=== PATIENT | female | born 1970 | race African-American/Black ===

== ENCOUNTER 2022-05-13 06:07 | Inpatient (IN) | payer OTHER, MEDICAID ==
[~2022-05-13] VITALS: Ht 162.6 cm; Wt 97.3 kg
[2022-05-13] MEDS ORDERED: IOHEXOL-350 100 ML BOTTLE ONE ×2 (07:10→11:11)
[2022-05-13 07:38] LABS: BASOPHILS % 0.7 % (0.0-2.0); EOSINOPHILS % 0.7 % (0.0-5.0); HEMATOCRIT. 46.1 % (36.0-48.0); HEMOGLOBIN. 14.4 g/dL (12.0-16.0); MEAN CORPUSCULAR HEMOGLOBIN 22.7 pg (28.0-32.0); MEAN CORPUSCULAR VOLUME 72.7 fL (81.0-99.0); MONOCYTES % 6.6 % (2.0-8.0); PLATELET 327 x1000/uL (130-400); RED BLOOD CELL COUNT 6.34 mill/uL (4.2-5.4); RED CELL DISTRIBUTION WIDTH 19.1 % (11.6-14.6)
[2022-05-13 07:44] LABS: CHLORIDE 101 mEq/L (98-107)
[2022-05-13 07:53] LABS: ETHANOL BLOOD < 10 mg/dL
[2022-05-13] MEDS ORDERED: DEXTROSE 50% WATER 50ML SYRINGE IV SCH (08:45)
[2022-05-13] MEDS ORDERED: SODIUM BICARBONATE 8.4% 1 MEQ/ML 50ML SYR IV SCH (08:45)
[2022-05-13] MEDS ORDERED: INSULIN REGULAR (HUMULIN R) 300UNITS/3ML VIAL IV SCH (08:45)
[2022-05-13] MEDS ORDERED: CALCIUM GLUCONATE 1,000 MG in DEXT 5% WATER 100 ML IV SCH (08:45)
[2022-05-13] MEDS ORDERED: CALCIUM GLUCONATE 1GM PREMIX 50 ML IV SCH (08:52)
[2022-05-13 08:55] LABS: BG BASE EXCESS 1.7 mmol/L (-2.0-2.0); BG CARBOXYHEMOGLOBIN 1.4 % (0.5-1.5); BG METHEMOGLOBIN 0.1 % (0.0-1.5); BG OXYGEN SATURATION 91.9 % (92.0-98.5); BG OXYHEMOGLOBIN 90.5 % (94.0-97.0); BG PCO2 35.7 mmHg (35.0-45.0); BG PH 7.464 (7.350-7.450); BG PO2 61.6 mmHg (75.0-100.0); BG SAMPLE SITE RIGHT RADIAL; BG TOTAL HEMOGLOBIN 15.2 g/dL (12.0-18.0); BG VENT MODE NASAL CANNULA
[2022-05-13] MEDS: ALBUTEROL (0.083%) 2.5MG/3ML NEB HHN SCH (09:40)
[2022-05-13] MEDS ORDERED: ACETAMINOPHEN 325MG TABLET PO PRN (11:15)
[2022-05-13] MEDS ORDERED: CLONIDINE 0.1MG TABLET PO PRN (11:15)
[2022-05-13] MEDS ORDERED: ONDANSETRON HCL 4MG/2ML INJ IV PRN (11:15)
[2022-05-13 11:25] VITALS: BP 138/87
[2022-05-13 11:26] LABS: CLARITY URINE CLOUDY (CLEAR); COLOR URINE YELLOW (YELLOW); KETONES URINE NEGATIVE (NEGATIVE); LEUKOCYTE ESTERASE URINE 2+ (NEGATIVE); NITRITE URINE NEGATIVE (NEGATIVE); OCCULT BLOOD URINE NEGATIVE (NEGATIVE); PROTEIN URINE 1+ (NEGATIVE); SPECIFIC GRAVITY URINE 1.026 (1.005-1.030); UROBILINOGEN URINE 0.2 E.U./dL (0.2-1.0)
[2022-05-13] MEDS ORDERED: AMLODIPINE 5MG TABLET PO NR (11:30)
[2022-05-13 11:49] LABS: *AMPHETAMINES SCREEN URINE NEGATIVE (NEGATIVE); *BARBITURATES SCREEN URINE NEGATIVE (NEGATIVE); *BENZODIAZEPINES SCREEN URINE NEGATIVE (NEGATIVE); *COCAINE SCREEN URINE NEGATIVE (NEGATIVE); CANNABINOID URINE SCREEN PRESUMTIVE POSITIVE (NEGATIVE); METHADONE URINE SCREEN NEGATIVE (NEGATIVE); OPIATES URINE SCREEN NEGATIVE (NEGATIVE); PHENCYCLIDINE URINE SCREEN NEGATIVE (NEGATIVE)
[2022-05-13 12:00] VITALS: BP 139/89
[2022-05-13] MEDS ORDERED: ENOXAPARIN 40MG/0.4ML SYR SUBCUT SCH (12:00)
[2022-05-13] MEDS ORDERED: PHEN50TA PO (12:54)
[2022-05-13] MEDS ORDERED: DIVA500T3 PO (12:54)
[2022-05-13] MEDS ORDERED: PHEN100C4 PO (12:54)
[2022-05-13] MEDS: ENOXAPARIN 30MG/0.3ML SYR SUBCUT SCH (13:20)
[2022-05-13 16:00] VITALS: BP 105/72
[2022-05-13 17:31] LABS: *AMPHETAMINES SCREEN URINE NEGATIVE (NEGATIVE); *BARBITURATES SCREEN URINE NEGATIVE (NEGATIVE); *BENZODIAZEPINES SCREEN URINE NEGATIVE (NEGATIVE); *COCAINE SCREEN URINE NEGATIVE (NEGATIVE); CANNABINOID URINE SCREEN PRESUMTIVE POSITIVE (NEGATIVE); METHADONE URINE SCREEN NEGATIVE (NEGATIVE); OPIATES URINE SCREEN NEGATIVE (NEGATIVE); PHENCYCLIDINE URINE SCREEN NEGATIVE (NEGATIVE)
[2022-05-13 18:29] LABS: T4 FREE 0.9 ng/dL (0.76-1.46)
[2022-05-13 20:00] VITALS: BP 123/93
[2022-05-14] VITALS: BP 135/82
[2022-05-14] MEDS: ENOXAPARIN 30MG/0.3ML SYR SUBCUT SCH ×2 (01:06→12:57)
[2022-05-14 08:00] VITALS: BP 114/68
[2022-05-14] MEDS: AMLODIPINE 5MG TABLET PO SCH (08:10)
[2022-05-14 10:35] LABS: BASOPHILS % 0.5 % (0.0-2.0); EOSINOPHILS % 1.5 % (0.0-5.0); HEMATOCRIT. 43.4 % (36.0-48.0); HEMOGLOBIN. 13.9 g/dL (12.0-16.0); LYMPHOCYTES % 25.8 % (20.0-50.0); MEAN CORPUSCULAR HEMOGLOBIN 23.2 pg (28.0-32.0); MEAN CORPUSCULAR VOLUME 72.6 fL (81.0-99.0); MEAN PLATELET VOLUME 8.6 fl (7.4-10.4); NEUTROPHILS % 68.2 % (40.0-76.0); PLATELET 314 x1000/uL (130-400); RED BLOOD CELL COUNT 5.98 mill/uL (4.2-5.4); RED CELL DISTRIBUTION WIDTH 18.7 % (11.6-14.6)
[2022-05-14] MEDS: ASPIRIN 81MG TABLET PO SCH (10:35)
[2022-05-14 10:47] LABS: CHLORIDE 104 mEq/L (98-107)
[2022-05-14 10:54] LABS: HDL CHOLESTEROL 71 mg/dL (40-59); LDL CHOLESTEROL 134 mg/dL (5-100)
[2022-05-14 11:43] LABS: D-DIMER 0.57 mg/L FEU (<0.50); PARTIAL THROMBOPLASTIN TIME 25.9 sec (23.4-31.0); PROTHROMBIN TIME 10.9 sec (9.6-11.0)
[2022-05-14 11:49] VITALS: BP 121/75
[2022-05-14 16:05] VITALS: BP 120/79
[2022-05-14] MEDS: CLOPIDOGREL 75MG TABLET PO SCH (18:38)
[2022-05-14 20:00] VITALS: BP 106/59
[2022-05-14] MEDS ORDERED: PHENYTOIN 100 MG/4 ML UDC NG SCH (21:00)
[2022-05-14] MEDS ORDERED: DIVALPROEX SODIUM 500MG ER TABLET PO SCH (21:00)
[2022-05-14] MEDS ORDERED: ATORVASTATIN CALCIUM 40MG TABLET PO SCH ×2 (21:00)
[2022-05-14] MEDS ORDERED: PHENYTOIN SODIUM EXTENDED 100MG CAPSULE PO SCH (21:00)
[2022-05-15] VITALS: BP 126/52
[2022-05-15] MEDS: ENOXAPARIN 30MG/0.3ML SYR SUBCUT SCH ×2 (00:57→13:20)
[2022-05-15 04:00] VITALS: BP 125/58
[2022-05-15 08:00] VITALS: BP 122/68
[2022-05-15] MEDS: CLOPIDOGREL 75MG TABLET PO SCH (08:21)
[2022-05-15] MEDS: ASPIRIN 81MG TABLET PO SCH (08:22)
[2022-05-15] MEDS: AMLODIPINE 5MG TABLET PO SCH (08:22)
[2022-05-15 12:00] VITALS: BP 108/62
[2022-05-15] MEDS ORDERED: AMLO5TAB88 PO (14:28)
[2022-05-15] MEDS ORDERED: LIP40 PO (14:28)
[2022-05-15] MEDS ORDERED: PHEN100C4 PO (14:28)
[2022-05-15] MEDS ORDERED: ASPI-1160 PO (14:28)
[2022-05-15] MEDS ORDERED: CLOP75TA15 PO (14:28)
[2022-05-15] MEDS ORDERED: DEPER5 PO (14:28)
[2022-05-15 15:56] VITALS: BP 108/62
== END 2022-05-15 19:40 | disposition home or self-care (01) | DRG 65 ==
LOC: ER 06:07 → EDBEDREQ 07:06 → EDBEDREQTM 07:54 → EDBEDREQSVC 07:54 → MICUSO 08:42 → EDBEDREQ 09:04 → EDBEDREQTM 09:04 → 7WST 11:33
PROVIDERS: ADMIT Internal Medicine; ATTEND Internal Medicine
PROC: 4A00X4Z Measurement of Central Nervous Electrical Activity, External Approach (ICD-10-PCS; principal; 2022-05-15)
DX: I63.81 Other cerebral infarction due to occlusion or stenosis of small artery (principal); E44.1 Mild protein-calorie malnutrition; E87.5 Hyperkalemia; D72.829 Elevated white blood cell count, unspecified; G40.909 Epilepsy, unspecified, not intractable, without status epilepticus; I10 Essential (primary) hypertension; R47.1 Dysarthria and anarthria; R29.700 NIHSS score 0; F17.210 Nicotine dependence, cigarettes, uncomplicated; Z87.820 Personal history of traumatic brain injury; Z87.828 Personal history of other (healed) physical injury and trauma; Z79.899 Other long term (current) drug therapy
CPT/HCPCS: 36415; 36600; 70496; 70498; 70551; 71045; 71275; 80048; 80053; 80061; 80165; 80185; 80305; 80320; 81003; 82140; 82375; 82542; 82805; 83036; 83520; 84439; 84443; 84480; 85025; 85379; 93005; 93306; 94640; 95816; 99285; J0610; J1650; J1815; J3490; J7060; Q9967; G0480